=== PATIENT | female | born 1965 | race Caucasian/White ===

== ENCOUNTER 2025-07-16 16:44 | Emergency (ER) | payer OTHER, SELFPAY ==
--- NOTE | ~2025-07-16 | XR_ITS ---
EXAMINATION: XR wrist RT min 3V, 07/16/2025 17:00 CDT HISTORY: injury to R wrist COMPARISON: No comparisons available. Findings: Nondisplaced fracture of the distal radius. No significant degenerative changes. Soft tissue swelling. Impression: Distal radial fracture Reviewed, dictated and finalized at location A. Impression: Distal radial fracture
[2025-07-16 16:47] VITALS: BP 129/67; PULSE 82; RESP 16; TEMP 36.5; O2SAT 97
--- OUTSIDE RECORDS SUMMARY | 2025-07-16 16:47 | XMS_ITS | Clinical Summary ---
Author Organization [facility] Address [address] [place] [address] Care Team Providers Care Bonded Structures Repairer Name Role Phone Rafita Spence MD Primary Care Provider [phone] Allergies Active Allergy Reactions Criticality Noted Date Comments Duloxetine Diarrhea Low 06/02/2019 Sulfa (Sulfonamide Antibiotics) Rash Medium 03/18 Medications multivitamin capsule Take 1 capsule by mouth daily Active aspirin 81 mg enteric coated tabletIndications :Syncope, unspecified syncope type,Precordial pain,Aortic calcification Take 1 tablet (81 mg total) by mouth daily 30 tablet 2 01/22/20 23 Active triamcinolone (KENALOG) 0.1 % cream Apply topically 2 (two) times a day 60 g 2 05/14/20 23 Active diclofenac sodium (VOLTAREN) 1 % gel Apply 4 g topically 4 (four) times a day 100 g 1 06/07/20 24 Active rosuvastatin (CRESTOR) 10 mg tabletIndications :Mixed hyperlipidemia Take 1 tablet (10 mg total) by mouth daily 90 tablet 3 05/16/20 25 Active valACYclovir (VALTREX) 500 mg tablet TAKE 2 TABLETS BY MOUTH EVERY 12 HOURS ON THE DAY OF BREAKOUT 28 tablet 05/17/20 25 Active triamcinolone (KENALOG) 0.1 % ointment Apply topically 2 (two) times a day as needed for irritation or rash 60 g 2 07/10/20 22 Discontinued Active Problems Problem Noted Date Diagnosed Date Orthostatic hypotension 02/28/2023 Post menopausal syndrome 01/09/2022 Post-concussion headache 11/28/2021 Annual physical exam 08/14/2021 Adnexal cyst 03/24/2017 GERD (gastroesophageal reflux disease) 7 BOB (generalized anxiety disorder) 07/02/2016 Herpesviral infection, unspecified 07/02/2016 Hyperlipidemia 07/02/2016 Resolved Problems Problem Noted Date Diagnosed Date Resolved Date Precordial pain 01/21/2023 05/14/2023 Suspected COVID-19 virus infection 06/12/2022 05/14/2023 Syncope and collapse 11/28/2021 024 Vertigo 11/28/2021 05/14/2023 Hiatal hernia with gastroeso phageal reflux disease and esophagitis 12/16/2019 01/01/2021 Postprocedural hematoma of abdominal wall 12/16/2019 01/01/2021 Encounters Date Type Department Care Team Description 05/16/2025 11:45 AM CDT Office Visit [facility] Family Medicine at [address] [phone] Rafita Spence MD Gastroesophageal reflux disease without esophagitis (Primary Dx); BOB (generalized anxiety disorder); Mixed hyperlipidemia 05/16/2025 10:51 AM CDT - 05/16/2025 11:59 PM CDT Hospital Encounter [facility] [address] [place] [address] Screening mammogram, encounter for Discharge Disposition: Discharge to home or self care 05/16/2025 8:35 AM CDT Lab [facility] [address] [place] [id number] Abnormal laboratory test result 05/16/2025 Results Follow-Up [facility] Medical [facility] Family Medicine at [address] [id number] Debbie Solorio PA CBC with auto differential, Differential, auto from Last 3 Months Immunizations Immunization Administration Dates Next Due Influenza, Unspecified 08/17/2024(Deferr ed: Patient Refused),08/17/2024(Deferred: Patient decision),08/17/2023(Deferred: Patient Refused),01/15/2023(Deferred: Patient Refused),11/28/2021(Deferred: Patient Refused),11/17/2020(Deferred: Patient Refused),08/17/2019(Deferred: Patient Refused) Surgical History Surgery Date Site/Laterality Comments HYSTERECTOMY Pt states total CHOLECYSTECTOMY EYE SURGERY Medical History Medical History Date Comments GERD (gastroesophageal reflux disease) Hyperlipidemia Anxiety Tinnitus Dizziness Nasal septal perforation Family History Medical History Relation Name Comments Heart disease Brother 1 No Known Problems Brother 2 No Known Problems Brother 3 No Known Problems Brother 4 No Known Problems Daughter 1 No Known Problems Daughter 2 Diabetes Father Diabetes Mother No Known Problems Sister 1 Cancer Sister 2 Diabetes Son 1 type 1 No Known Problems Son 2 Breast cancer Neg Hx Relation Name Status Comments Brother 1 Brother 2 Alive Brother 3 Alive Brother 4 Alive Daughter 1 Alive Daughter 2 Alive Father Mother Alive Sister 1 Alive Sister 2 Alive Breast X3 episo judi Son 1 Alive Son 2 Alive Social History Tobacco Use Types Packs/Day Years Used Date Smoking Tobacco: Former Cigarettes 1 15 2010 Smokeless Tobacco: Never Tobacco Cessation:Counseling Given: Not Answered Alcohol Use Standard Drinks/Week Comments Yes 6 (1 standard drink = 0.6 oz pur e alcohol) rarely AUDIT-C Answer Date Recorded Q1: How often do you have a drink containing alc ohol? Monthly or less 05/16/2025 Q2: How many drinks containi ng alcohol do you have on a typical day when you are drinking? 1 or 2 05/16/2025 Frequency of Binge Drinking Not on file 04/19 PHQ-2 Answer Date Recorded PHQ-2 Total Score (If total score is 3 or more points, staff should administer the PHQ-9) 0 05/16/2025 Comments No Sex and Gender Information Value Date Recorded Sex Assigned at Not on file Legal Sex Female 5:27 PM [employer] Gender Identity Not on file Sexual Orientation Not on file Obstetrics History Para Term AB IAB SAB Ectopic Multiple Livin g Live Births 4 4 4 Date Outcome GA Total Labor Labor/2nd/3rd Weight Sex Type Anes PTL Amanda A1 A5 Name Clin Term Term Term Term Last Filed Vital Signs Vital Sign Reading Time Taken Comments Blood Pressure 122/80 05/16/2025 12:15 PM CDT Pulse 75 05/16/2025 12:15 PM CDT Temperature 36.6 C (97.9 F) 05/16/2025 12:15 PM CDT Respiratory Rate 18 05/16/2025 12:15 PM CDT Oxygen Saturation 97% 05/16/2025 12:15 PM CDT Inhaled Oxygen Concentration - - Weight 65 kg (143 lb 6.4 oz) 05/16/2025 12:15 PM CDT Height 154.9 cm (5' 1) 05/16/2025 12:15 PM CDT Body Mass Index 27.1 05/16/2025 12:15 PM CDT Plan of Treatment Health Maintenance Due Date Last Done Comments Hepatitis C Screening 1965 DTaP/Tdap/Td Vaccine (1 - Tdap) 1978 Hepatitis B Screening 1985 Zoster Vaccine (1 of 2) 2017 Covid-19 Vaccine ( season) 2024 03/03/2021, 02/09/2021 Influenza Vaccine (#1) 2025 Regular Well Visit/Exam 18-64 01/26/2026 01/26/2025, 12/16/2023, 08/14/2021 Breast Cancer Screening-Mammogram 05/16/2026 05/16/2025, 03/03/2024, 03/07/2023, Additional history exists Depression Screening 05/16/2026 05/16/2025, 01/26/2025, 05/14/2023, Additional history exists Colon Cancer Screening-Colonoscopy 09/17/2027 09/17/2022, 10/02/2016, 11/23/2015 Colon Cancer Screening-CT Colonography Discontinued 09/17/2022, 10/02/2016, 11/23/2015 Colon Cancer Screening-DNA Stool Discontinued 09/17/2022, 10/02/2016, 11/23/2015 Colon Cancer Screening-FIT Discontinued 09/17, 10/02/2016, 11/23/2015 Colon Cancer Screening-Sigmoidoscopy Discontinued 09/17/2022, 10/02/2016, 11/23/2015 Pneumococcal vaccine <65 Aged Out No longer eligible based on patient's age to complete this topic Procedures Procedure Name Priority Date/Time Associated Diagnosis Comments SCREENING MAMMOGRAM BILATERAL W BUDDY Schedule Routine, Read Routine (OP Routine) 05/16/2025 11:04 AM CDT Screening mammogram, encounter for EGFR Routine 05/16/2025 8:42 AM CDT Abnormal laboratory test result DIFFERENTIAL AUTO Routine 05/16/2025 8:4 2 AM CDT Abnormal laboratory test result COMPREHENSIVE METABOLIC PANEL Routine 05/16/2025 8:42 AM CDT Abnormal laboratory test result CBC WITH AUTO DIFFERENTIAL Routine 05/16/2025 8:42 AM CDT Abnormal laboratory test result LIPID PANEL Routine 05/16/2025 8:42 AM CDT Abnormal laboratory test result TSH Routine 05/16/2025 8:42 AM CDT Abnormal laboratory test result HM COLONOSCOPY Routine 09/17/2022 from Last 3 Months or Most Recently Relevant to Health Maintenance Results * Screening Mammogram Bilateral W Buddy (05/16/2025 11:04 AM CDT) Anatomical Region Laterality Modality Breast Bilateral Mammography Impressions 05/16/2025 11:26 AM CDT Bilateral 1) Calcifications: Both breasts calcifications (multiple findings). OVERALL BI-RADS FINAL ASSESSMENT: 2 - Benign RECOMMENDATION: Recommend bilateral annual screening mammography. Narrative 05/16/2025 11:26 AM CDT EXAMINATION: Screening Mammogram Bilateral W Buddy: 05/16/2025 COMPARISON: Relevent prior studies available at the time of interpretation were reviewed, including the most recent mammogram on: 03/03/2024, 03/07/2023, and 12/18/2021. TECHNIQUE: Mammography was performed with 2D and digital breast tomosynthesis (DBT) images. CAD was utilized. BREAST PARENCHYMAL COMPOSITION: There are scattered areas of fibroglandular density. FINDINGS: Bilateral 1) Calcifications: There are multiple similar vascular and punctate calcifications seen in both breasts. Compared to the previous study, there are no significant changes. us Rafita Spence MD IMG MAMMO PROCEDURES Final Re sult * eGFR (05/16/2025 8:42 AM CDT) Pathologist [facility] eGFR >90 >=60 mL/min/1. 73 m2 Comment: Interpretive Data Reference Interval Normal >/= 90 mL/min/1.73m2 Mildly decreased* 60 - 89 mL/min/1.73m2 Mildly to moderately decreased 45 - 59 mL/min/1.73m2 Moderately to severely decreased 30 - 44 mL/min/1.73m2 Severely decreased 15 - 29 mL/min/1.73m2 Kidney Failure < 15 mL/min/1.73m2 *Relative to young adult level Estimated glomerular filtration rate is determined by the 2020 CKD-EPI equation recommended by the National Kidney Foundation (A Unifying Approach to GFR Estimation: Recommendations of the NKF-ASK Task Force on Reassessing the Inclusion of Race in Diagnosing Kidney Disease, JASN 2020). The CKD-EPI equation should not be used for patients with unstable renal function and has not been validated in children and those over 70. Current interpretive data was last reviewed 2021. Blood 05/16/2025 8:42 AM CDT 05/16/2025 9:09 AM CDT us Rafita Spence MD LAB BLOOD ORDERABLES Final [facility]ult [facility] [address] [facility] Department [place] [address] * Differential, auto (05/16/2025 8:42 AM CDT) Pathologist [facility] Neutrophil abs 3.75 1.50 - 6.50 K/cumm Imm gran abs 0.02 0.00 - 0.10 K/cumm [facility] Lymphocyte abs 2.53 0.80 - 3.30 K/cumm [facility] Monocyte abs 0.45 0.20 - 0.80 K/cumm [facility] Eosinophil abs 0.14 0.00 - 0.50 K/cumm [facility] Basophil abs 0.06 0.00 - 0.10 K/cumm [facility] Neutrophil pct 53.9 % [facility] Comment: Interpretive Data Percent cell count reference ranges are not reported, since discordance with absolute values may lead to misinterpretation of CBC data. Current Interpretive Data was last revised on 2018. Imm gran pct 0.3 % [facility] Comment: Interpretive Data Percent cell count reference ranges are not reported, since discordance with absolute values may lead to misinterpretation of CBC data. Current Interpretive Data was last revised on 2018. Lymphocyte pct 36.4 % [facility] Comment: Interpretive Data Percent cell count reference ranges are not reported, since discordance with absolute values may lead to misinterpretation of CBC data. Current Interpretive Data was last revised on 2018. Monocyte pct 6.5 % [facility] Comment: Interpretive Data Percent cell count reference ranges are not reported, since discordance with absolute values may lead to misinterpretation of CBC data. Current Interpretive Data was last revised on 2018. Eosinophil pct 2.0 % [facility] Comment: Interpretive Data Percent cell count reference ranges are not reported, since discordance with absolute values may lead to misinterpretation of CBC data. Current Interpretive Data was last revised on 2018. Basophil pct 0.9 % [facility] Comment: Interpretive Data Percent cell count reference ranges are not reported, since discordance with absolute values may lead to misinterpretation of CBC data. Current Interpretive Data was last revised on 2018. Blood 05/16/2025 8:42 AM CDT 05/16/2025 9:08 AM CDT us Rafita Spence MD LAB BLOOD ORDERABLES Final Re sult [facility] [address] [facility] Department [place] [address] * CBC with auto differential (05/16/2025 8:42 AM CDT) WBC 6.95 3.80 - 9.90 K/cumm Hgb 14.9 11.9 - 15.5 g/dL [facility] Hct 44.5 35.6 - 45.5 % [facility] Plt 255 150 - 400 K/cumm [facility] MPV 10.3 9.1 - 12.3 fL [facility] RBC 4.86 3.90 - 5.20 M/cumm [facility] MCV 91.6 81.3 - 96.4 fL [facility] MCH 30.7 27.1 - 33.3 pg [facility] MCHC 33.5 32.3 - 35.7 g/dL [facility] RDW CV 13.5 11.1 - 14.9 % [facility] RDW SD 45.1 35.7 - 48.1 fL [facility] NRBC abs 0.00 0.00 - 0.01 K/cumm [facility] Blood 05/16/2025 8:42 AM CDT 05/16/2025 9:08 AM CDT Rafita Spence MD LAB BLOOD ORDERABLES Final Re sult Performing Organization Address [facility] de Phone Number [address] [place] [address] * TSH (05/16/2025 8:42 AM CDT) Thyroid Stimulating Hormone 2.98 0.30 - 4.20 mcIUnit/mL Blood 05/16/2025 8:42 AM CDT 05/16/2025 9:09 AM CDT Rafita Spence MD LAB BLOOD ORDERABLES Final Re sult Performing Organization Address [facility] de Phone Number [address] [email or web address] [address] * Lipid panel (05/16/2025 8:42 AM CDT) Cholesterol 178 30 - 199 mg/dL Comment: Interpretive Data Ages < or = 19 years Acceptable: <170 mg/dL Borderline high: 170-199 mg/dL High: >or= 200 mg/dL Ages > or = 20 years Desirable: <200 mg/dL Borderline high: 200-239 mg/dL High: >or= 240 mg/dL Literature References: 1. Expert Panel on Integrated Guidelines for Cardiovascular Health and Risk Reduction in Children and Adolescents. Pediatrics 2011;128:S213 2. NCEP Expert Panel. Circulation 2004;110:227 Current Interpretive Data was last revised on 2018. Triglycerides 82 <=149 mg/dL [facility]IE Comment: Interpretive Data Ages < or = 9 years Acceptable: <75 mg/dL Borderline high: 75-99 mg/dL High: >or= 100 mg/dL Ages 10 to 20 years Acceptable: <90 mg/dL Borderline high: 90-129 mg/dL High: >or= 130 mg/dL Ages > or = 20 years Desirable: <150 mg/dL Borderline high: 150-199 mg/dL High: 200-499 mg/dL Very high: >or= 499 mg/dL Literature References: 1. Expert Panel on Integrated Guidelines for Cardiovascular Health and Risk Reduction in Children and Adolescents. Pediatrics 2011;128:S213 2. NCEP Expert Panel. Circulation 2004;110:227 Current Interpretive Data was last revised on 2018. HDL 42 >=40 mg/dL [facility]IE Comment: Interpretive Data Ages < or = 19 years Acceptable: >45 mg/dL Borderline low: 40-45 mg/dL Low: <40 mg/dL Ages > or = 20 years Desirable: >or= 60 mg/dL Low: <40 mg/dL Literature References: 1. Expert Panel on Integrated Guidelines for Cardiovascular Health and Risk Reduction in Children and Adolescents. Pediatrics 2011;128:S213 2. NCEP Expert Panel. Circulation 2004;110:227 Current Interpretive Data was last revised on 2018. LDL, calculated 121 <=129 mg/dL [facility]IE Comment: Interpretive Data Ages < or = 19 years Acceptable: <110 mg/dL Borderline high: 110-129 mg/dL High: >or= 130 mg/dL Ages > or = 20 years Optimal: <100 mg/dL Near optimal: 100-129 mg/dL Borderline high: 130-159 mg/dL High: >160 mg/dL Calculated using the Blanchard LDL-C estimating equation. This equation was implemented on 2024. Prior to this date LDL-C was estimated using the Friedewald equation. Literature References: 1. Expert Panel on Integrated Guidelines for Cardiovascular Health and Risk Reduction in Children and Adolescents. Pediatrics 2011;128:S213 2. NCEP Expert Panel. Circulation 2004;110:227 3. Santo M et al. ROSA M Cardiol. 2020 March 17;5(5):540-548. doi: 10.1001/jamacardio.2020.0013 Current Interpretive Data was last revised on 2024. Non-HDL Cholesterol 136 mg/dL [facility] Comment: Interpretive Data Ages < or = 19 years Acceptable: <120 mg/dL Borderline high: 120-144 mg/dL High: >145 mg/dL Ages > or = 20 years When triglycerides are >200 mg/dL, Non-HDL cholesterol is a secondary target of therapy with treatment goals that are 30 mg/dL greater than the LDL cholesterol target. Literature References: 1. Expert Panel on Integrated Guidelines for Cardiovascular Health and Risk Reduction in Children and Adolescents. Pediatrics 2011;128:S213 2. NCEP Expert Panel. Circulation 2004;110:227 Current Interpretive Data was last revised on 2018. Chol/HDL ratio 4 [facility] Blood 05/16/2025 8:42 AM CDT 05/16/2025 9:09 AM CDT us Rafita Spence MD LAB BLOOD ORDERABLES Final Re sult [facility] [address] [facility] Department [place] [address] * (ABNORMAL) Comprehensive metabolic panel (05/16/2025 8:42 AM CDT) [facility] Signature Sodium 139 135 - 145 mmol/L Potassium, pl 4.2 3.3 - 4.9 mmol/L [facility] Chloride 106 97 - 110 mmol/L [facility] CO2 20(L) 22 - 32 mmol/L [facility] Anion gap 13 2 - 15 mmol/L [facility] BUN 15 6 - 25 mg/dL [facility] Creatinine 0.73 0.60 - 1.10 mg/dL [facility] Glucose 131 70 - 199 mg/dL [facility] Comment: Interpretive Data Fasting glucose >/= 126 mg/dl is diagnostic for diabetes. Fasting is defined as no caloric intake for at least 8 hours. Fasting glucose between 100 mg/dl to 125 mg/dl is diagnostic of prediabetes. In a patient with classic symptoms of hyperglycemia or hyperglycemic crisis, a random glucose >/= 200 mg/dl is diagnostic for diabetes. In the absence of unequivocal hyperglycemia, results should be confirmed by repeat testing. The classification and Diagnosis of Diabetes Diabetes Care 2021; 46: S19-S40. Current interpretive data was last revised 2022. Calcium 9.4 8.5 - 10.3 mg/dL [facility] Bilirubin, total 0.5 0.1 - 1.2 mg/dL [facility] Protein, pl 6.8 6.5 - 8.5 g/dL [facility] Albumin 4.3 3.5 - 5.0 g/dL [facility] Alk phos 40 40 - 130 Units/L [facility] ALT 20 7 - 45 Units/L [facility] AST 27 10 - 45 Units/L [facility] Blood 05/16/2025 8:42 AM CDT 05/16/2025 9:09 AM CDT Rafita Spence MD LAB BLOOD ORDERABLES Final Re sult [facility] [address] [facility] Department [place] [address] * HM COLONOSCOPY (09/17/2022) Historical Provider HEALTH MAINTENANCE Final Result from Last 3 Months or Most Recently Relevant to Health Maintenance Insurance [facility] Care Teams Bonded Structures Repairer Relationship Specialty Start Date End Date Rafita Spence MD PCP - General 02/01/19
--- OUTSIDE RECORDS SUMMARY | 2025-07-16 16:47 | XMS_ITS | Encounter Summary ---
Author Organization [facility] Healthcare Address [address] [place] [address] Care Team Providers Care Retail Marketing Coordinator Name Role Phone Rafita Spence MD Primary Care Provider [phone] Encounter Details Date Type Department Care Team (Late st Contact Info) Description 05/16/2025 Results Follow-Up [facility] Medical Group Family Medicine at [address] [place] [phone] Debbie Solorio, [address] [place] [address] CBC with auto differential, Differential, auto Social History Tobacco Use Types Packs/Day Years Used Date Smoking Tobacco: Former Cigarettes 1 15 1 6 - 2010 Smokeless Tobacco: Never Alcohol Use Standard Drinks/Week Comments Yes 6 [...] on file Legal Sex Female 5:27 PM [employer] Gender Identity Not on file Sexual Orientation Not on file documented as of this encounter Functional Status documented as of this encounter Plan of Treatment Not on file documented as of this encounter Visit Diagnoses Not on filedocumented in this encounter Care Teams Retail Marketing Coordinator Relationship Specialty Start Date End Date Rafita Spence MD PCP - General 02/01/19 documented as of this encounter
--- OUTSIDE RECORDS SUMMARY | 2025-07-16 16:47 | XMS_ITS | Encounter Summary ---
Author Organization [facility] Facility Care Team Providers Care Import Specialist Name Role Phone Rafita Spence MD Primary Care Provider [phone] Encounter Details Date Type Department Care Team (Latest Contact Info) Description 10/04/2016 Orders Only [facility]INCON[facility] ProviderDino MD [address] [place] [address] Social History Tobacco Use Types Packs/Day Years Used Date Smoking Tobacco: Never Assessed Comments Unknown Sex and Gender Information Value Date Recorded Sex Assigned at Not on file Legal Sex Female 5:27 PM FIRST FRONT VENTILATOR Gender Identity Not on file Sexual Orientation Not on file documented as of this encounter Plan of Treatment Not on file documented as of this encounter Procedures Procedure Name Priority Date/Time Associated Diagnosis Comments SCAN - PATHOLOGY 10/04/2016 12:0 0 AM FIRST FRONT VENTILATOR documented in this encounter Results * SCAN - PATHOLOGY (10/04/2016 12:00 AM FIRST FRONT VENTILATOR) Narrative 10/04/2016 12:00 AM FIRST FRONT VENTILATOR Ordered by an unspecified provider. us Historical Provider Final Res ult documented in this encounter Visit Diagnoses Not on filedocumented in this encounter Additional Health Concerns Infection Onset Date Last Indicated Resolved Time COVID: Suspected 06/12/2022 06/12/2022 06/12/2022 3:15 PM CDT COVID: Suspected 11/23/2023 11/23/2023 11/23/2023 12:15 PM FIRST FRONT VENTILATOR Influenza, adult 11/23/2023 11/23/2023 11/30/2023 3:05 AM FIRST FRONT VENTILATOR documented as of this encounter Care Teams Import Specialist Relationship Specialty Start Date End Date Rafita Spence MD PCP - General 02/01/19 documented as of this encounter
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
[2025-07-16] MEDS: IBUPROFEN 600 MG TABLET PO (17:45)
[2025-07-16] MEDS: HYDROcodone/acetaminophen (*CRX) 5-325 MG TABLET 1 TAB PO (17:45)
== END 2025-07-16 19:13 | disposition home or self-care (01) ==
LOC: ANHED 18:34
PROVIDERS: Emergency Provider Emergency Medicine
DX: S52.501A Unspecified fracture of the lower end of right radius, initial encounter for closed fracture (principal); V18.4XXA Pedal cycle driver injured in noncollision transport accident in traffic accident, initial encounter; Y93.55 Activity, bike riding
CPT/HCPCS: 29125; 73110; 99284; A4565; A9270